=== PATIENT | male | born 2000 | race Caucasian/White ===

== ENCOUNTER 2022-06-23 18:58 | Emergency (ER) | payer SELFPAY ==
[~2022-06-23] VITALS: Ht 190.5 cm; Wt 125.0 kg
[2022-06-23 19:35] VITALS: BP 124/74
[2022-06-24] MEDS ORDERED: NEOMYCIN-BACITRACIN-POLYM UNITDOSE PKG TOP OINT TOP ONE (01:00)
[2022-06-24] MEDS ORDERED: IBUP800T26 PO (01:10)
== END 2022-06-24 01:18 | disposition home or self-care (01) ==
LOC: ER 18:58
DX: S69.91XA Unspecified injury of right wrist, hand and finger(s), initial encounter (principal); W22.8XXA Striking against or struck by other objects, initial encounter; Y93.89 Activity, other specified; Y92.89 Other specified places as the place of occurrence of the external cause; Y99.8 Other external cause status
CPT/HCPCS: 73140

== ENCOUNTER 2025-04-16 06:59 | Emergency (ER) | payer OTHER ==
[~2025-04-16] VITALS: Ht 188 cm; Wt 127.2 kg
[~2025-04-16 06:59] MED LIST: IBUP-1455 PO
--- NOTE | 2025-04-16 07:52 | ED.PDOC ---
GI ASSESSMENT HPI Comments 24 y/o M, presents to the ED for CC of abdominal pain. Patient states, he has been experiencing epigastric abdominal pain with associated nausea, vomiting, and diarrhea onset, Monday (04/13/25). Patient reports, that he is lactose intolerant however, still consumes dairy without adverse effects apart from this instance. Patient complains of current 5/10 epigastric pain. Patient denies fever, chills, melena, or hematochezia. No other symptoms or modifying factors present at this time. Chief Complaint: Nausea/Vomiting Time Seen by MD: 07:30 Reviewed Notes: Nurses Notes, Medications, Allergies Allergies: Coded Allergies: NO KNOWN ALLERGIES (Unverified , 06/23/22) Home Meds Active Scripts Ibuprofen Micronized (Ibuprofen) 800 Mg Tab, 800 MG PO TID PRN, #30 TAB Prov:CEFERINO PACHECO 06/24/22 Information Source: Patient Mode of Arrival: Ambulatory Timing: Days Duration: Since onset Prehospital treatment: None Quality: Aching Vomitus: Watery Stool: Watery Severity: Moderate Recent: None Recent Hx of: None Pain Location: Epigastric Modifying Factors: Nothing Associated sign and symptoms: Nausea, Vomiting, Diarrhea, Abdominal Pain Past Medical History PAST MEDICAL HISTORY: Denies Surgical History: Denies all surgeries Family History Family History: Reviewed,noncontributory to illness, No family hx of Cancer, No family hx of DM, No family hx of Heart josefina, No family hx of HTN, No family hx ofKidney josefina, No family hx of Liver josefina, No family hx of Lung josefina, No family hx of Stroke Social History Smoker: Non-Smoker Alcohol: Occasionally Drugs: Denies Drug Use Lives In: Home Constitutional: denies: chills, diaphoresis, fatigue, fever, malaise, sweats, weakness, others EENTM: denies: blurred vision, double vision, ear bleeding, ear discharge, ear drainage, ear pain, ear ringing, eye pain, eye redness, hearing loss, mouth pain, mouth swelling, nasal discharge, nose bleeding, nose congestion, nose pain, photophobia, tearing, throat pain, throat swelling, voice changes, others Respiratory: denies: cough, hemoptysis, orthopnea, SOB at rest, shortness of breath, SOB with excertion, stridor, wheezing, others Cardiovascular: denies: chest pain, dizzy spells, diaphoresis, Dyspnea on exertion, edema, irregular heart beat, left arm pain, lightheadedness, palpitations, PND, syncope, others Gastrointestinal: reports: abdominal pain, diarrhea, nausea, vomiting; denies: abdomen distended, blood streaked bowels, constipated, dysphagia, difficulty swallowing, hematemesis, melena, poor appetite, poor fluid intake, rectal bleeding, rectal pain, others Genitourinary: denies: burning, dysuria, flank pain, frequency, hematuria, incontinence, penile discharge, penile sore, pain, testicle pain, testicle swelling, urgency, others Neurological: denies: dizziness, fainting, headache, left sided numbness, left sided weakness, numbness, paresthesia, pre-existing deficit, right sided numbness, right sided weakness, seizure, speech problems, tingling, tremors, weakness, others Musculoskeletal: denies: back pain, gout, joint pain, joint swelling, muscle pain, muscle stiffness, neck pain, others Integumetry: denies: bruises, change in color, change in hair/nails, dryness, laceration, lesions, lumps, rash, wounds, others Allergic/Immunocompromised: denies: Difficulty Healing, Frequent Infections, Hives, Itching, others Hematologic/Lymphatic: denies: anemia, blood clots, easy bleeding, easy bruising, swollen glands, others Endocrine: denies: excessive hunger, excessive sweating, excessive thirst, excessive urination, flushing, intolerance to cold, intolerance to heat, unexplained weight gain, unexplained weight loss, others Psychiatric: denies: anxiety, bipolar disorder, depression, hopeless, panic disorder, schizophrenia, sleepless, suicidal, others All Other Systems: Reviewed and Negative Physical Exam General Appearance: Mild Distress HEENT: Normal ENT Inspection, PERRL/EOMI Neck: Full Range of Motion, Non-Tender, Normal, Normal Inspection Respiratory: Chest Non-Tender, Lungs Clear, No Accessory Muscle Use, No Respiratory Distress, Normal Breath Sounds Cardiovascular: No Edema, No JVD, No Murmur, No Gallop, Normal Peripheral Pulses, Regular Rate/Rhythm Breast Exam: Deferred Gastrointestinal: Diffuse, Epigastric, No Organomegaly, No Pulsatile Mass, Normal Bowel Sounds, Soft, Tenderness Genitalia: Deferred Pelvic: Deferred Rectal: Deferred Extremities: No calf tenderness, Normal capillary refill, Normal inspection, Normal range of motion, Non-tender, No pedal edema 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 Was a procedure done?: No GI differential Dx Differential Diagnosis: Gastritis/PUD, Gastroenteritis, Electrolyte Imbalance, Food Poisoning, Bacterial, Viral X-Ray, Labs, Meds, VS Vital Signs Date Time Temp Pulse Resp B/P (MAP) Pulse Ox O2 Delivery O2 Flow Rate FiO2 04/16/25 08:56 98.1 61 16 115/76 (89) 98 98.1 04/16/25 07:57 61 18 122/80 (94) 95 04/16/25 07:57 61 18 95 Room Air 04/16/25 07:43 98.9 71 18 141/80 (100) 95 98.9 Current Medications Medications (Trade) Dose Ordered Sig/Mamadou Route Start Time Stop Time Status Last Admin Metoclopramide HCl (Reglan Injection) 10 mg ONCE ONCE IV 04/16/25 08:00 04/16/25 08:01 DC 04/16/25 08:02 Pantoprazole Sodium (Protonix Tablet) 40 mg ONCE ONCE PO 04/16/25 08:00 04/16/25 08:01 DC 04/16/25 08:00 X-Ray, Labs, Meds, VS Comment Patient presented to the emergency department because of abdominal pain after he ate dairy product patient is lactose intolerance You received Reglan and omeprazole He is feeling better he will be discharged to follow up with his PCP he may want You may want to take Lactaid before using any milk product Time of 1ST Reevaluation: 08:00 Reevaluation 1ST: Unchanged Time of 2ND Reevaluation: 11:33 Reevaluation 2ND: Improved Consultation: PCP Patient Education/Counseling: Diagnosis, Treatment, Prognosis, Need For Follow Up Family Education/Counseling: Diagnosis, Treatment, Prognosis, Need For Follow Up, No Family Present SEPSIS Sepsis Screen Vital Signs Date Time Temp Pulse Resp B/P (MAP) Pulse Ox O2 Delivery O2 Flow Rate FiO2 04/16/25 08:56 98.1 61 16 115/76 (89) 98 98.1 04/16/25 07:57 61 18 122/80 (94) 95 04/16/25 07:57 61 18 95 Room Air 04/16/25 07:43 98.9 71 18 141/80 (100) 95 98.9 Medications Medications Dose Ordered Sig/Mamadou Route Start Time Stop Time Status Last Admin Dose Admin Metoclopramide HCl 10 mg ONCE ONCE IV 04/16/25 08:00 04/16/25 08:01 DC 04/16/25 08:02 Pantoprazole Sodium 40 mg ONCE ONCE PO 04/16/25 08:00 04/16/25 08:01 DC 04/16/25 08:00 Departure 1 Departure Time of Disposition: 11:35 Impression: Primary Impression: Nonspecific abdominal pain Additional Impression: Lactose intolerance Disposition: 01 HOME / SELF CARE / HOMELESS Condition: Fair Additional Instructions: Follow up with your regular doctor Use Lactaid before food Discharged With: Self Critical Care Note Critical Care Time?: No Stability Stability form required: No Heart Score Heart Score: Heart Score Response (Comments) Value History N/A 0 EKG N/A 0 Age <45 0 Risk Factors No known risk factors 0 Troponin N/A 0 Total 0 I personally scribed for ZIGGY CANELA MD ([email or web address]) on 04/16/25 at 07:52. Electronically submitted by Gali Winn ([email or web address]). I personally scribed for ZIGGY CANELA MD ([email or web address]) on 04/16/25 at 08:09. Electronically submitted by Gali Winn ([email or web address]). ZIGGY CANELA MD Apr 16, 2025 07:52
[2025-04-16] MEDS: PANTOPRAZOLE 40 MG TAB PO ONE (08:00)
[2025-04-16] MEDS: METOCLOPRAMIDE HCL 5MG/ml INJ 2ml VIAL IV ONE (08:02)
[2025-04-16 08:56] VITALS: BP 115/76; PULSE 61; RESP 16; TEMP 98.1; O2SAT 98
== END 2025-04-16 11:47 | disposition home or self-care (01) ==
LOC: ER 06:59
DX: E73.9 Lactose intolerance, unspecified (principal); Z79.899 Other long term (current) drug therapy
CPT/HCPCS: 96374; 99283; J2765

== ENCOUNTER 2025-08-23 21:53 | Emergency (ER) | payer OTHER ==
[~2025-08-23] VITALS: Ht 190.5 cm; Wt 134.9 kg
[2025-08-23 21:54] VITALS: BP 120/90; PULSE 90; RESP 18; TEMP 98.8; O2SAT 98
== END 2025-08-23 23:12 | disposition left against medical advice (07) ==
LOC: ER 21:53
DX: S00.81XA Abrasion of other part of head, initial encounter (principal); Z53.21 Procedure and treatment not carried out due to patient leaving prior to being seen by health care provider; V89.2XXA Person injured in unspecified motor-vehicle accident, traffic, initial encounter; Y93.I9 Activity, other involving external motion; Y92.488 Other paved roadways as the place of occurrence of the external cause; Y99.8 Other external cause status

== ENCOUNTER 2025-08-26 15:31 | Emergency (ER) | payer OTHER ==
[~2025-08-26] VITALS: Ht 190.5 cm; Wt 132.1 kg
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
[2025-08-26] MEDS: IBUPROFEN 800 MG TAB PO ONE (16:50)
[2025-08-26] MEDS: ACETAMINOPHEN 325 MG TAB PO ONE (16:50)
[2025-08-26] MEDS: CEPHALEXIN 250 MG CAP PO ONE (16:50)
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
[2025-08-26] MEDS ORDERED: CEPH500T PO (19:26)
[2025-08-26 19:45] VITALS: BP 134/89; PULSE 75; RESP 18; TEMP 98.7; O2SAT 98
== END 2025-08-26 19:49 | disposition home or self-care (01) ==
LOC: ER 15:31
DX: S40.811A Abrasion of right upper arm, initial encounter (principal); R07.89 Other chest pain; V29.99XA Rider (driver) (passenger) of other motorcycle injured in unspecified traffic accident, initial encounter; Y93.I9 Activity, other involving external motion; Y92.488 Other paved roadways as the place of occurrence of the external cause; Y99.8 Other external cause status
CPT/HCPCS: 71101; 73080; 73090; 73130